=== PATIENT | male | born 1990 | race Caucasian/White ===

== ENCOUNTER 2024-09-05 17:06 | Emergency (ER) | payer SELFPAY ==
[2024-09-05] MEDS ORDERED: Tetracaine 0.5% PF 4 ML BOT ONE (17:33)
[2024-09-05] MEDS ORDERED: Fluorescein Opthalmic Strip ONE (17:52)
== END 2024-09-05 17:57 | disposition home or self-care (01) ==
LOC: MADERS 17:06
DX: T15.01XA Foreign body in cornea, right eye, initial encounter (principal); F17.210 Nicotine dependence, cigarettes, uncomplicated
CPT/HCPCS: 65220

== ENCOUNTER 2025-04-18 20:16 | Emergency (ER) | payer SELFPAY ==
[2025-04-18] MEDS ORDERED: Bacitracin 1 PK ONE (21:16)
[2025-04-18] MEDS ORDERED: Lidocaine 1%/Epinephrine 1:100K 10 ML VIAL ONE (21:16)
[2025-04-18] MEDS ORDERED: Boostrix 0.5 ML (Tdap) VIAL (>/=7 yrs of age) ONE (21:16)
== END 2025-04-18 22:11 | disposition home or self-care (01) ==
LOC: MADERS 20:16
DX: S01.511A Laceration without foreign body of lip, initial encounter (principal); Z23 Encounter for immunization; V89.2XXA Person injured in unspecified motor-vehicle accident, traffic, initial encounter
CPT/HCPCS: 12013; 90471; 90715